=== PATIENT | male | born 1985 | race African-American/Black ===

== ENCOUNTER 2020-02-10 08:44 | Emergency (ER) | payer BC, OTHER ==
[~2020-02-10] VITALS: Ht 175.3 cm; Wt 75.0 kg
[2020-02-10 09:06] VITALS: BP 124/83
== END 2020-02-10 11:50 | disposition home or self-care (01) ==
LOC: ER 08:44
DX: K64.9 Unspecified hemorrhoids (principal); F12.10 Cannabis abuse, uncomplicated
CPT/HCPCS: 99282

== ENCOUNTER 2020-06-30 07:11 | Emergency (ER) | payer BC, OTHER ==
[~2020-06-30] VITALS: Ht 175.3 cm; Wt 82.0 kg
[2020-06-30 07:18] VITALS: BP 108/72
[2020-06-30] MEDS ORDERED: DEXAMETHASONE 10 MG/ML VIAL IV ONE (09:15)
== END 2020-06-30 10:23 | disposition home or self-care (01) ==
LOC: ER 07:11
DX: J02.9 Acute pharyngitis, unspecified (principal); F12.10 Cannabis abuse, uncomplicated; Z20.822 Contact with and (suspected) exposure to COVID-19
CPT/HCPCS: 87070; 87430; 96374; 99283; C9803; J1100; U0003